=== PATIENT | female | born 1980 | race Caucasian/White ===

== ENCOUNTER 2024-02-06 10:34 | Outpatient (CLI) | payer BC, SELFPAY ==
--- NOTE | 2024-02-06 10:30 | RT.EKG_ITS ---
APPROVED REPORT Exam: Resting ECG Reason for Exam: Chest discomfort Patient Location: O HR:63 bpm ECG Measurements Heart Rate 63 AXIS ID 135 P 81 QRSd 86 QRS 77 QT 415 T 52 QTc 425 Conclusion Sinus rhythm...normal P axis, V-rate 50- 99 Normal Electrocardiogram
== END 2024-02-06 10:35 | disposition home or self-care (01) ==
LOC: DI.CM 10:34
PROVIDERS: Visit Provider Physician Assistant
DX: R07.89 Other chest pain (principal)
CPT/HCPCS: 93010